=== PATIENT | male | born 1960 | race Caucasian/White ===

== ENCOUNTER 2018-10-05 07:29 | Day surgery (SDC) | payer OTHER ==
[~2018-10-05] VITALS: Ht 175.3 cm; Wt 93.1 kg
[~2018-10-05 07:29] MED LIST: GLIPIZIDE; INSULIN; METFORMIN
[2018-10-05 08:45] VITALS: Ht 175.3 cm; Wt 93.1 kg
--- NOTE | 2018-10-05 09:11 | PREAC ---
Date/Time of Note Date/Time of Note DATE: 10/05/18 TIME: 09:10 Anesthesia Eval and Record Evaluation Time Pre-Procedure Interview DATE: 10/05/18 TIME: 09:10 Age 57 Sex male NPO: 8 hrs Preoperative diagnosis + occult blood Planned procedure colonoscopy Past Medical History Past Medical History: Includes Endo: Diabetes GI: Obesity Surgery & Anesthesia Issues No known issue Meds Anticoagulation: No Beta Virgilio within 24 hr: No Reason Beta Virgilio not given: Pt. not on B-Virgilio Reported Medications [Glipizide] No Conflict Check 10/05/18 [Metformin] No Conflict Check 10/05/18 [Insulin] No Conflict Check 10/05/18 Meds reviewed: Yes Allergies Coded Allergies: No Known Allergy (Unverified , 10/05/18) Allergies Reviewed: Yes Labs/Studies Labs Reviewed: Reviewed by anesthesiologist test: N/A Pre-procedure Exam Airway: Adequate mouth opening, Adequate thyromental dist Mallampati: Mallampati II Teeth: Normal Lung: Normal Heart: Normal ASA Physical Status ASA physical status: 2 Emergency: None Planned Anesthetic General/MAC: MAC Pre-operative Attestations Prior to commencing anesthesia and surgery, the patient was re-evaluated, there was verification of: *The patient's identity *The results of appropriate recent lab work and preoperative vital signs *The above evaluation not changing prior to induction *Anesthetic plan, risk benefits, alternative and complications discussed with patient/family; questions answered; patient/family understands, accepts and wishes to proceed. MAKENZIE REECE Oct 05, 2018 09:11
[2018-10-05 09:28] VITALS: BP 141/74; PULSE 72; RESP 16
[2018-10-05] MEDS ORDERED: LIDOCAINE 2% (SDV) 5 ML INJ ONE (09:39)
[2018-10-05] MEDS ORDERED: PROPOFOL 40 ML ONE (09:39)
--- NOTE | 2018-10-05 10:31 | PAC ---
Date/Time of Note Date/Time of Note DATE: 10/05/18 TIME: 10:30 Post-Anesthesia Notes Post-Anesthesia Note Last documented vital signs Vital Signs Date Temp Pulse Resp B/P (MAP) Pulse Ox O2 O2 Flow FiO2 Time Delivery Rate 10/05/18 98.2 98 72 82 16 16 141/74 100 100 Room 09:28 102 (96) 111/ Air face 8 67 mask 6L Activity: WNL Respiratory function: WNL Cardiovascular function: WNL Mental status: Baseline Pain reasonably controlled: Yes Hydration appropriate: Yes Nausea/Vomiting absent: Yes MAKENZIE REECE Oct 05, 2018 10:31
[2018-10-05 11:04] VITALS: BP 125/75; RESP 20
== END 2018-10-05 12:10 | disposition home or self-care (01) ==
LOC: GIL 07:29
PROVIDERS: ATTEND Internal Medicine Gastroenterology
DX: K51.90 Ulcerative colitis, unspecified, without complications (principal); K63.5 Polyp of colon; K64.8 Other hemorrhoids; R19.5 Other fecal abnormalities; E11.9 Type 2 diabetes mellitus without complications
CPT/HCPCS: 45380; 82962; 88305; Z7610

== ENCOUNTER 2018-11-10 08:18 | Emergency (ER) | payer OTHER ==
[~2018-11-10] VITALS: Ht 180.3 cm; Wt 83.4 kg
[~2018-11-10 08:18] MED LIST changes: +DICY10CA40 PO; +METF100010 PO
[2018-11-10 08:23] VITALS: Ht 180.3 cm; Wt 83.4 kg
[2018-11-10] MEDS ORDERED: SOD CHLORIDE 0.9% 1,000 ML IV STA (09:27)
[2018-11-10] MEDS ORDERED: DICYCLOMINE 20 MG INJ IM ONE (09:30)
[2018-11-10 10:16] VITALS: BP 123/69; PULSE 97; RESP 18
== END 2018-11-10 11:00 | disposition home or self-care (01) ==
LOC: E/R 08:18
DX: R19.7 Diarrhea, unspecified (principal); R10.84 Generalized abdominal pain; E11.65 Type 2 diabetes mellitus with hyperglycemia; Z79.4 Long term (current) use of insulin
CPT/HCPCS: 36415; 80053; 83690; 85025; 87045; 96372; J0500; J7030; Z7502